=== PATIENT | male | born 1940 | race Caucasian/White ===

== ENCOUNTER 2022-02-03 20:27 | Emergency (ER) | payer MEDICARE, OTHER ==
--- NOTE | 2022-02-03 20:43 | ED Physician Documentation ---
PD HPI GI BLEED - Stated complaint Stated Complaint: BLOOD IN STOOL - Chief complaint Chief Complaint: General - History obtained from History obtained from: Patient - History of Present Illness Timing - onset: Enter time (15:00), Today Timing - details: Abrupt onset Pain level max: 0 Pain level now: 0 Associated symptoms: Maroon stool. No: Vomiting, Coffee ground emesis, Hematemesis, BRBPR, Black/tarry stool, Diarrhea, Constipation, Abdominal pain, Chest pain Similar symptoms before: Has not had sx before Recently seen: Not recently seen - Additional information Additional information: c/o dark red blood per rectum, five episodes since 3 PM today. Denies h/o similar symptoms/signs, and has no h/o GI bleeding. Denies pain. Last colonoscopy was 6 months ago, was told there were no abnormalities noted. While on the toilet tonight having one of the episodes of blood per rectum, patient became diaphoretic, pale, and nauseas. He has recovered from these symptoms/signs. Review of Systems Constitutional: reports: Sweats. denies: Fever, Chills Cardiac: reports: Reviewed and negative Respiratory: reports: Reviewed and negative GI: reports: Nausea, Bloody / black stool. denies: Abdominal Pain, Vomiting, Constipation, Diarrhea, Hematemesis : denies: Dysuria, Frequency Musculoskeletal: reports: Reviewed and negative Neurologic: denies: Focal weakness, Numbness, Headache PD PAST MEDICAL HISTORY - Past Medical History Cardiovascular: Hypertension - Past Surgical History Past Surgical History: No - Present Medications Home Medications: Ambulatory Orders Medication Instructions Recorded Confirmed No Known Home Medications 02/03/22 02/03/22 - Allergies Allergies/Adverse Reactions: Allergies Allergy/AdvReac Type Severity Reaction Status Date / Time Penicillins Allergy Rash Verified 02/03/22 21:02 - Social History Does the pt smoke?: No Smoking Status: Never smoker Does the pt drink ETOH?: No Does the pt have substance abuse?: No PD ED PE NORMAL - Vitals Vital signs reviewed: Yes - General General: Alert and oriented X 3, No acute distress, Well developed/nourished - HEENT HEENT: Moist mucous membranes - Neck Neck: Supple, no meningeal sign - Cardiac Cardiac: RRR, No murmur, No gallop, No rub - Respiratory Respiratory: No respiratory distress, Clear bilaterally - Abdomen Abdomen: Normal bowel sounds, Soft, Non tender, Non distended - Derm Derm: Normal color, Warm and dry - Extremities Extremities: No edema - Neuro Neuro: Alert and oriented X 3 PD ED PE EXPANDED - Rectal Rectal: Normal Tone, Other (grossly dark red material noted). No: Mass, Hemorrhoid Results - Vitals Vitals: Oxygen O2 Source Room air - Labs Labs: Microbiology 02/03/22 21:00 Occult Blood - Final Stool Laboratory Tests 02/03/22 02/03/22 02/03/22 20:50 20:50 20:50 WBC 14.1 H RBC 4.35 L Hgb 12.9 L Hct 39.1 L MCV 89.9 MCH 29.7 MCHC 33.0 RDW 14.2 Plt Count 276 MPV 10.3 Neut # (Auto) 9.0 H Lymph # (Auto) 3.5 Osborne # (Auto) 1.0 Eos # (Auto) 0.5 Baso # (Auto) 0.1 Absolute Nucleated RBC 0.00 Nucleated RBC % 0.0 Sodium 136 Potassium 4.1 Chloride 103 Carbon Dioxide 24 Anion Gap 9.0 BUN 38 H Creatinine 1.2 Estimated GFR (MDRD) 58 L Glucose 155 H Calcium 8.9 Total Bilirubin 0.9 AST 17 ALT 10 Alkaline Phosphatase 53 Total Protein 7.4 Albumin 3.9 Globulin 3.5 Albumin/Globulin Ratio 1.1 Lipase 72 H Blood Type A POSITIVE Blood Type Recheck Antibody Screen NEGATIVE 02/03/22 02/03/22 21:49 23:00 WBC RBC Hgb 12.3 L Hct 37.6 L MCV MCH MCHC RDW Plt Count MPV Neut # (Auto) Lymph # (Auto) Osborne # (Auto) Eos # (Auto) Baso # (Auto) Absolute Nucleated RBC Nucleated RBC % Sodium Potassium Chloride Carbon Dioxide Anion Gap BUN Creatinine Estimated GFR (MDRD) Glucose Calcium Total Bilirubin AST ALT Alkaline Phosphatase Total Protein Albumin Globulin Albumin/Globulin Ratio Lipase Blood Type Blood Type Recheck A POSITIVE Antibody Screen PD MEDICAL DECISION MAKING - ED course Complexity details: reviewed results, re-evaluated patient, considered differential, d/w patient ED course: presents with painless hematochezia (dark red/maroon blood), 5 episodes since 3 PM today. Vital signs stable, mildly low hgb (12.9) with 2-hour recheck of 12.3. He did not have any more episodes of BM nor hematochezia during ED stay. He has elevated BUN with normal creatinine, ratio would be c/w lower GI bleeding. He is not on any blood thinners. Results d/w patient . He is comfortable going home at this time, and he appears to be stable from GI bleeding standpoint. Return precautions carefully reviewed, instructed to f/u with PMD even if no further episodes. Departure - Departure Disposition: 01 Home, Self Care Clinical Impression: Hematochezia Condition: Good Instructions: ED Hematochezia Stable Follow-Up: Chaz Ocasio MD [Provider Admit Priv/Credential] - Comments: As we discussed, there are no concerning findings on tonight's tests. Your red blood cell level is a little below normal but not to a concerning extent, and the repeat test (two hours later) did not show a significant decline. You will need to follow up for further testing with your primary care provider. If you do not have a primary care provider, you can use the information provided elsewhere on these discharge instructions for follow-up (Dr. Ocasoi). Please return to the emergency department if your bleeding worsens or if you have recurrence of the nausea, sweats, and pale appearance you had earlier tonight. You should also return if you develop any other concerning signs/symptoms, such as pain, fever, lightheadedness Discharge Date/Time: 02/04/22 00:13
[2022-02-03 21:00] LABS: BASOPHILS # (AUTO) 0.1 10^3/uL (0.0-0.1); BASOPHILS % (AUTO) 0.4 %; EOSINOPHILS # (AUTO) 0.5 10^3/uL (0.0-0.7); EOSINOPHILS % (AUTO) 3.6 %; HCT - HEMATOCRIT 39.1 % (42.0-52.0); HGB - HEMOGLOBIN 12.9 g/dL (14.0-18.0); LYMPHOCYTES # (AUTO) 3.5 10^3/uL (1.5-3.5); LYMPHOCYTES % (AUTO) 24.9 %; MEAN CORPUSCULAR HEMOGLOBIN 29.7 pg (27.0-31.0); MEAN CORPUSCULAR VOLUME 89.9 fL (80.0-94.0); MEAN PLATELET VOLUME 10.3 fL (7.4-11.4); MONOCYTES % (AUTO) 7.3 %; NEUTROPHILS % (AUTO) 63.4 %; PLT - PLATELET COUNT 276 10^3/uL (130-450); RED BLOOD COUNT 4.35 10^6/uL (4.70-6.10); RED CELL DISTRIBUTION WIDTH 14.2 % (12.0-15.0); WHITE BLOOD COUNT 14.1 x10^3/uL (4.8-10.8)
[2022-02-03 21:13] LABS: ALBUMIN 3.9 g/dL (3.2-5.5); ALBUMIN/GLOBULIN RATIO 1.1 (1.0-2.2); BILIRUBIN,TOTAL 0.9 mg/dL (0.2-1.0); CALCIUM 8.9 mg/dL (8.5-10.3); CREATININE 1.2 mg/dL (0.6-1.2); POTASSIUM 4.1 mmol/L (3.5-5.0); TOTAL PROTEIN 7.4 g/dL (6.7-8.2)
[2022-02-03 23:05] LABS: HCT - HEMATOCRIT 37.6 % (42.0-52.0); HGB - HEMOGLOBIN 12.3 g/dL (14.0-18.0)
[2022-02-03 23:50] VITALS: BP 133/86
== END 2022-02-04 00:13 | disposition home or self-care (01) ==
LOC: ED 20:27
DX: K92.1 Melena (principal)
CPT/HCPCS: 36415; 80053; 82272; 83690; 85014; 85018; 85025; 86850; 86900; 86901; 99282; 99284

== ENCOUNTER 2024-06-19 10:29 | Emergency (ER) | payer MEDICARE, OTHER ==
[2024-06-19 10:46] VITALS: BP 157/82; O2SAT 98
--- NOTE | 2024-06-19 11:23 | ED Physician Documentation ---
History of Present Illness - Stated complaint Stated Complaint: CROOKS - Chief complaint Chief Complaint: General - History obtained from History obtained from: Patient - Additonal information Additional information: 83-year-old gentleman has had right posterior scalp pain radiating into the ear, for the last week to week and a half. Seen by my partner last night and diagnosed with cellulitis. Given tramadol and Keflex and he is still having a lot of pain. PD PAST MEDICAL HISTORY - Past Medical History Past Medical History: Yes Cardiovascular: Hypertension - Past Surgical History Past Surgical History: No - Present Medications Home Medications: Ambulatory Orders Medication Instructions Recorded Confirmed Doxycycline [Vibramycin] 100 mg PO BID #14 tablet 06/19/24 06/19/24 Gabapentin [Neurontin] 1 - 2 cap PO TID PRN #60 cap 06/19/24 HYDROcod/ACETAM 5/325 [[place] 5/325] 1 - 2 tab PO Q6H PRN #20 tablet 06/19/24 Valacyclovir HCl [Valtrex] 1,000 mg PO TID #30 tablet 06/19/24 predniSONE [Deltasone] 20 mg PO [id number] #21 tab 06/19/24 traMADol [Ultram] 50 mg PO Q4-6H PRN #20 tablet 06/19/24 06/19/24 - Allergies Allergies/Adverse Reactions: Allergies Allergy/AdvReac Type Severity Reaction Status Date / Time Penicillins Allergy Rash Verified 06/19/24 10:37 - Social History Does the pt smoke?: No Smoking Status: Never smoker Does the pt drink ETOH?: No Does the pt have substance abuse?: No - Immunizations Immunizations are current?: No Immunizations: TDAP >10years/unknown - POLST Patient has POLST: No PD ED PE NORMAL - Vitals Vital signs reviewed: Yes - General General: Alert and oriented X 3, No acute distress - HEENT HEENT: PERRL, EOMI, Other (He has shingles on the right posterior scalp radiating towards the right ear.) - Neuro Neuro: Alert and oriented X 3, environmental compliance officer 2-12 intact Results - Vitals Vitals: Vital Signs - 24 hr 06/19/24 10:37 Temperature 36.1 C L Heart Rate 88 Respiratory 16 Rate Blood Pressure 157/82 H O2 Saturation 98 Oxygen O2 Source Room air PD Medical Decision Making - ED course ED course: 83-year-old gentleman with shingles and uncontrolled pain on tramadol. Will add gabapentin, hydrocodone, prednisone and antiviral. Departure - Departure Disposition: 01 Home, Self Care Clinical Impression: Shingles Qualifiers: Herpes zoster complications: without complications Qualified Code(s): B02.9 - Zoster without complications Condition: Good Record reviewed to determine appropriate education?: Yes Instructions: ED Shingles Prescriptions: predniSONE [Deltasone] 20 mg PO [id number] #21 tab Gabapentin [Neurontin] 1 - 2 cap PO TID PRN #60 cap PRN Reason: shingles pain HYDROcod/ACETAM 5/325 [[place] 5/325] 1 - 2 tab PO Q6H PRN #20 tablet PRN Reason: Pain Valacyclovir HCl [Valtrex] 1,000 mg PO TID #30 tablet Comments: As discussed, this to me looks more like shingles than cellulitis. I think you could probably stop the Keflex antibiotic and I sent prescription for 2 stronger pain medications, hydrocodone and gabapentin to the [facility] in [place]. Along with this also prednisone as that helps decrease the length of pain and decrease something called postherpetic neuralgia and valacyclovir which is a antiviral that will also help it go away faster. Do not drink or drive while taking gabapentin. Return for new or worsening symptoms. I am prescribing a short course of narcotic pain medication for you. These are potentially dangerous and addictive medications that should be used carefully. These medications may constipate you. Take an [id number] stool softener (docusate) twice daily with plenty of water while taking these medications. If you go 24 hours without a bowel movement, take [id number] miralax, per package instructions. Do not drink or drive while taking these medications. If you received narcotic or sedating medications while in the emergency department, do not drive for 24 hours. Store this medication in a safe, secure place and out of reach of children. It is a violation of federal law to give or sell this medication to another person or to use in a manner other than prescribed. The ED will not refill narcotic prescriptions, including prescriptions lost or stolen. To dispose of unwanted medications: 1. [facility] provides a drop box for medication in pill form only (no liquids) 8:00 am to 4:30 p.m. Monday-Monday in the lobby of the [facility], [address] Empty pills into ziplock bag before disposal. Call [phone] for information. 2.[employer] is a free service available to all [facility] residents. Go to [email or web address] Note that many narcotic pain relievers also contain Tylenol/acetaminophen. Please ensure that your total dose of acetaminophen from all sources does not exceed 3 g (3000 mg) per day.
[2024-06-19] MEDS: HYDROcod/ACETAM 5/325 MG TABLET PO STA (11:26)
[2024-06-19] MEDS: GABAPENTIN 100 MG CAPSULE PO STA (11:27)
== END 2024-06-19 11:30 | disposition home or self-care (01) ==
LOC: ED 10:29
DX: B02.9 Zoster without complications (principal); I10 Essential (primary) hypertension; L03.811 Cellulitis of head [any part, except face]
CPT/HCPCS: 99283; A9270